=== PATIENT | female | born 1995 | race Caucasian/White ===

== ENCOUNTER 2017-01-25 18:33 | Emergency (ER) | payer MEDICAID ==
[~2017-01-25] VITALS: Ht 160 cm; Wt 124.7 kg
[2017-01-25 18:43] VITALS: BP_SYST 156
[2017-01-25] MEDS ORDERED: PROMETHAZINE 6.25 MG/ CODEINE 10 MG/ 5 ML PO ONE (23:15)
[2017-01-25] MEDS ORDERED: AMOXICILLIN 500 MG CAPSULE PO ONE (23:15)
[2017-01-25 23:23] VITALS: BP_SYST 140
== END 2017-01-25 23:23 | disposition home or self-care (01) ==
LOC: SED 18:33
DX: J40 Bronchitis, not specified as acute or chronic (principal)
CPT/HCPCS: 71020-TC; 81025; 99284